=== PATIENT | female | born 1985 | race Caucasian/White ===

== ENCOUNTER 2017-06-26 21:14 | Inpatient (IN) | payer BC ==
[2017-06-26] MEDS ORDERED: Metoclopramide 10 MG/2 ML SDV IVPUSH ONE (22:06)
[2017-06-26] MEDS ORDERED: Sodium Chloride 0.9% 10 ML Syringe FLUSH PRN (22:06)
[2017-06-26] MEDS ORDERED: Citric Acid/Sodium Citrate Solution 30 ML Cup PO ONE (22:06)
[2017-06-26] MEDS ORDERED: Bupivacaine 0.5% 30 ML SDV ONE (22:10)
[2017-06-26] MEDS ORDERED: Metoclopramide 10 MG/2 ML SDV ONE (22:10)
[2017-06-26] MEDS ORDERED: Lactated Ringers 1,000 ML IV SCH (22:15)
[2017-06-26] MEDS ORDERED: Oxytocin/Lactated Ringers 10 UNIT/1,000 ML BAG IV SCH (22:15)
[2017-06-26] MEDS ORDERED: ceFAZolin 2 GM in Premix Bag 1 BAG IV ONE (22:26)
--- NOTE | 2017-06-26 22:29 | PCM.PREANE ---
Preanesthetic Assessment - Anesthesia/Transfusion/Family Hx Anesthesia History: Prior Anesthesia Without Reaction Family History of Anesthesia Reaction: No Transfusion History: No Prior Transfusion(s) Intubation History: Unknown - Review of Systems General: No Symptoms Pulmonary: No Symptoms Cardiovascular: No Symptoms Gastrointestinal: No Symptoms Neurological: No Symptoms Other: Reports: Easy Bleeding, Easy Bruising - Physical Assessment NPO Status Date: 06/26/17 NPO Status Time: 17:30 (orange) Pulse: 112 O2 Sat by Pulse Oximetry: 100 Respiratory Rate: 18 Blood Pressure: 117/79 Temperature: 36.8 C Vital Signs: Last Vital Signs Temp 36.9 C 06/26/17 22:20 Pulse 112 H 06/26/17 22:20 Resp 18 06/26/17 22:20 BP 117/79 06/26/17 22:20 Pulse Ox 100 06/26/17 22:20 Height: 1.63 m Weight: 79.379 kg ASA Class: 2E Mental Status: Alert & Oriented x3 Airway Class: Mallampati = 2 Dentition: Reports: Normal Dentition, Caries Thyro-Mental Finger Breadths: 3 Mouth Opening Finger Breadths: 3 ROM/Head Extension: Full Lungs: Clear to Auscultation, Normal Respiratory Effort Cardiovascular: Regular Rate, Regular Rhythm, No Murmurs - Lab Values: platelets = 216,000 All labs reviewed and noted and within acceptable ranges to proceed with c section. 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: - SUBSTANCE USE Smoking Status *Q: Never Smoker Second Hand Smoke Exposure: No Days Per Week of Alcohol Use: 0 Recreational Drug Use History: No - HOME MEDS Home Medications: Home Meds Azithromycin [Z-Chris] 250 mg PO ASDIRECTED #1 dosepk 11/11/15 [Rx] - CURRENT (IN HOUSE) MEDS Current Meds: Current Medications Lactated Ringer's (Ringers, Lactated) 1,000 mls @ 125 mls/hr IV ASDIRECTED [facility] Oxytocin/Lactated Ringer's (Pitocin In Lr 10 Units/1,000 Ml) 10 unit in 1,000 mls @ 500 mls/hr IV ASDIRECTED [facility] PRN Reason: Protocol Sodium Chloride (Saline Flush) 10 ml FLUSH ASDIRECTED PRN PRN Reason: Keep Vein Open Discontinued Medications Bupivacaine HCl (Marcaine 0.5%) Confirm Administered Dose 30 ml .ROUTE .STK-MED ONE Stop: 06/26/17 22:11 Citric Acid/Sodium Citrate (Bicitra Solution) 30 ml PO ONETIME ONE Stop: 06/26/17 22:07 Metoclopramide HCl (Reglan) Confirm Administered Dose 10 mg .ROUTE .STK-MED ONE Stop: 06/26/17 22:11 Metoclopramide HCl (Reglan) 10 mg IVPUSH ONETIME ONE Stop: 06/26/17 22:07
[2017-06-26] MEDS ORDERED: Oxytocin 10 Units/1 ML SDV ONE (22:58)
[2017-06-26] MEDS ORDERED: ceFAZolin 1 GM Vial ONE (22:58)
[2017-06-26] MEDS ORDERED: Lactated Ringers 2,000 ML ONE (22:58)
[2017-06-26] MEDS ORDERED: Ondansetron 4 MG/2 ML SDV ONE (22:58)
[2017-06-26] MEDS ORDERED: Phenylephrine 1% 10 MG/ML SDV ONE (22:58)
[2017-06-26] MEDS ORDERED: Ketorolac 30 MG/ML SDV ONE (22:58)
[2017-06-26] MEDS ORDERED: Morphine PF 10 MG/10 ML SDV ONE (22:59)
[2017-06-26] MEDS ORDERED: Meperidine PF 50 MG/ML Syringe IVPUSH PRN (23:02)
[2017-06-26] MEDS ORDERED: HYDROmorphone 0.5 MG/0.5 ML Syringe IVPUSH PRN (23:02)
[2017-06-26] MEDS ORDERED: Ondansetron 4 MG/2 ML SDV IVPUSH PRN (23:02)
[2017-06-26] MEDS ORDERED: fentaNYL 100 MCG/2 ML SDV IVPUSH PRN (23:02)
[2017-06-26] MEDS ORDERED: diphenhydrAMINE 50 MG/ML SDV IVPUSH PRN (23:02)
[2017-06-26] MEDS ORDERED: Phenylephrine 1 MG in Sodium Chloride 0.9% 10 ML IV SCH (23:15)
--- NOTE | 2017-06-27 00:02 | PCM.POSTAN ---
POST ANESTHESIA ASSESSMENT - MENTAL STATUS Mental Status: Alert - VITAL SIGNS Pulse Rate: 85 SaO2: 100 Resp Rate: 14 Blood Pressure: 117/75 Temperature: 37.1 C - RESPIRATORY Respiratory Status: Respiratory Rate WNL, Airway Patent, O2 Saturation Stable, Supplemental Oxygen - CARDIOVASCULAR CV Status: Pulse Rate WNL, Blood Pressure Stable - GASTROINTESTINAL GI Status: No Symptoms - POST OP HYDRATION Hydration Status: Adequate & Stable
--- NOTE | 2017-06-27 00:16 | PCM.OPNOTE ---
- General Post-Op/Procedure Note Date of Surgery/Procedure: 06/26/17 Operative Procedure(s): repeat - low transverse Findings: Normal pelvic anatomy, viable vertex female, 8/9 APGARS, 8#3oz at 2313 Pre Op Diagnosis: prior ,desires repeat Post-Op Diagnosis: Same Anesthesia Technique: Spinal Primary Surgeon: Franchesca De La Cruz Anesthesia Provider: Amanda Fox Flight/Transport Nurse: aRchel Garay Reason Flight/Transport Nurse Was Necessary: retraction, positioning, standard of care Pathology: none Fluid Replacement, Intraop: 1,000 Output, Urine Amount: 100 EBL in mLs: 500 Complications: None Condition: Good Free Text/Narrative:: Intake & Output 06/26/17 06/26/17 06/27/17 14:59 22:59 06:59 Output Total 100 Balance -100 The patient was taken to the operating room where epidural anesthesia was dosed to surgical levels without difficulty. The patient was prepped and draped in the usual sterile fashion in the dorsal supine position with a leftward tilt. A Pfannenstiel skin incision was made with the scalpel and carried through to the underlying layer of fascia. The fascia was incised in the midline and extended laterally using Joyner scissors. Hossein clamps were used to elevate the superior aspect of the fascial incision, which was elevated, and the underlying rectus muscles were dissected off bluntly and using Joyner scissors. Attention was then turned to the inferior aspect of the fascial incision, which in similar fashion was grasped with Hossein clamps, elevated, and the underlying rectus muscles were dissected off bluntly and using the joyner. The rectus muscles were dissected in the midline. The peritoneum was entered bluntly; this incision was extended superiorly and inferiorly with good visualization of the bladder. The bladder blade was inserted. The vesicouterine peritoneum was identified and entered sharply using Metzenbaum scissors. This incision was extended laterally and the bladder flap was created digitally. The bladder blade was reinserted. The lower uterine segment was incised in a transverse fashion using the scalpel and with digital traction. Clear fluid was noted. The was subsequently delivered by flexing the head to the incision. Body and shoulders followed without difficulty. The cord was clamped and cut. The was subsequently handed to the awaiting dining room host whose presence had been requested.. The placenta was delivered spontaneously intact with a three-vessel cord noted. The uterus was exteriorized and cleared of all clots and debris. The uterine incision was repaired in 2 layers using 0 monocryl. Hemostasis was visualized. Hemostasis was visualized bilaterally. The uterus was returned to the abdomen. The uterine incision was reexamined and it was noted to be hemostatic. The pelvis was copiously irrigated. The fascia was closed with 1 PDS suture, and the skin was closed with 3-0 monocryl. Sponge, lap, and instrument counts were correct x2. The patient was stable at the completion of the procedure and was subsequently transferred to the recovery room in stable condition.
[2017-06-27] MEDS ORDERED: Dextrose 5%-Lactated Ringers 1,000 ML IV SCH (00:54)
[2017-06-27] MEDS ORDERED: ePHEDrine 50 MG/ML SDV IVPUSH PRN (00:54)
[2017-06-27] MEDS ORDERED: Lanolin 100% Cream 7 GM Tube TOP PRN (00:54)
[2017-06-27] MEDS ORDERED: Docusate Sodium 100 MG Cap PO PRN (00:54)
[2017-06-27] MEDS ORDERED: diphenhydrAMINE 50 MG/ML SDV IVPUSH PRN (00:54)
[2017-06-27] MEDS ORDERED: Naloxone 0.4 MG/ML SDV IVPUSH PRN (00:54)
[2017-06-27] MEDS ORDERED: Ibuprofen 600 MG Tab PO PRN (06:00)
[2017-06-27] MEDS ORDERED: Ketorolac 30 MG/ML SDV IVPUSH SCH (06:15)
[2017-06-27] MEDS: Ketorolac 30 MG/ML SDV IVPUSH SCH ×3 (06:52→18:57)
--- NOTE | 2017-06-27 08:22 | PCM48HPAN ---
Post Anesthesia Note - EVALUATION WITHIN 48HRS OF ANESTHETIC Vital Signs in Normal Range: Yes Patient Participated in Evaluation: Yes Respiratory Function Stable: Yes Airway Patent: Yes Cardiovascular Function Stable: Yes Hydration Status Stable: Yes Pain Control Satisfactory: Yes Nausea and Vomiting Control Satisfactory: Yes Mental Status Recovered: Yes - COMMENTS/OBSERVATIONS Free Text/Narrative:: Patient doing well resting in bed. Denies any backpain, residual numbenss/ tingling to LE, or headaches.
--- NOTE | 2017-06-27 09:10 | PCM.PNPP ---
- General Info Date of Service: 06/27/17 Functional Status: Reports: Pain Controlled - Review of Systems General: Reports: No Symptoms HEENT: Reports: No Symptoms Pulmonary: Reports: No Symptoms Cardiovascular: Reports: No Symptoms Gastrointestinal: Reports: No Symptoms Genitourinary: Reports: No Symptoms Musculoskeletal: Reports: No Symptoms Skin: Reports: No Symptoms Neurological: Reports: No Symptoms Psychiatric: Reports: No Symptoms - General Info Date of Service: 06/27/17 - Patient Data Vital Signs - Most Recent: Last Vital Signs Temp 36.6 C 06/27/17 04:44 Pulse 90 06/27/17 04:44 Resp 16 06/27/17 06:00 BP 110/67 06/27/17 04:44 Pulse Ox 98 06/27/17 06:00 Weight - Most Recent: 79.379 kg I&O - Last 24 Hours: Intake & Output 06/26/17 06/27/17 06/27/17 22:59 06:59 14:59 Intake Total 1400 Output Total 1600 Balance -200 Lab Results - Last 24 Hours: Laboratory Results - last 24 hr 06/27/17 Range/Units 06:45 WBC 10.65 H (3.98-10.04) K/mm3 RBC 3.37 L (3.98-5.22) M/mm3 Hgb 10.1 L (11.2-15.7) gm/L Hct 30.6 L (34.1-44.9) % MCV 90.8 (79.4-94.8) fl MCH 30.0 (25.6-32.2) pg MCHC 33.0 (32.2-35.5) g/dl RDW Std Deviation 40.1 (36.4-46.3) fL Plt Count 179 L (182-369) K/mm3 MPV 9.4 (9.4-12.3) fl Neut % (Auto) 80.1 H (34.0-71.1) % Lymph % (Auto) 13.9 L (19.3-51.7) % Love % (Auto) 5.4 (4.7-12.5) % Eos % (Auto) 0.1 L (0.7-5.8) Baso % (Auto) 0.1 (0.1-1.2) % Neut # (Auto) 8.53 H (1.56-6.13) K/mm3 Lymph # (Auto) 1.48 (1.18-3.74) K/mm3 Love # (Auto) 0.58 H (0.24-0.36) K/mm3 Eos # (Auto) 0.01 L (0.04-0.36) K/mm3 Baso # (Auto) 0.01 (0.01-0.08) K/mm3 Med Orders - Current: Current Medications Diphenhydramine HCl (Benadryl) 25 mg IVPUSH Q6H PRN PRN Reason: Itching or Nausea Last Admin: 06/27/17 06:48 Dose: 25 mg Docusate Sodium (Colace) 100 mg PO Q12H PRN PRN Reason: Constipation Emollient Ointment (Lansinoh Hpa) 0 gm TOP ASDIRECTED PRN PRN Reason: Sore Nipples Ephedrine Sulfate (Ephedrine Sulfate) 5 mg IVPUSH SEECOMMENT PRN PRN Reason: Other Ibuprofen (Motrin) 600 mg PO Q6H PRN PRN Reason: mild pain or fever Ketorolac Tromethamine (Toradol) 30 mg IVPUSH Q6H [facility] Stop: 06/27/17 18:16 Last Admin: 06/27/17 06:52 Dose: 30 mg Naloxone HCl (Narcan) 0.1 mg IVPUSH SEECOMMENT PRN PRN Reason: Respiratory Depression Oxycodone/Acetaminophen (Percocet 325-5 Mg) 2 tab PO Q6H PRN PRN Reason: Pain (moderate 4-6) Discontinued Medications Bupivacaine HCl (Marcaine 0.5%) Confirm Administered Dose 30 ml .ROUTE .STK-MED ONE Stop: 06/26/17 22:11 Last Admin: 06/26/17 23:08 Dose: 19 ml Cefazolin Sodium (Ancef) Confirm Administered Dose 2 gm .ROUTE .STK-MED ONE Stop: 06/26/17 22:59 Citric Acid/Sodium Citrate (Bicitra Solution) 30 ml PO ONETIME ONE Stop: 06/26/17 22:07 Last Admin: 06/26/17 22:43 Dose: 30 ml Diphenhydramine HCl (Benadryl) 25 mg IVPUSH Q6H PRN PRN Reason: pruritis Fentanyl (Sublimaze) 50 mcg IVPUSH Q5M PRN PRN Reason: Pain Hydromorphone HCl (Dilaudid) 0.5 mg IVPUSH Q15M PRN PRN Reason: severe pain Lactated Ringer's (Ringers, Lactated) 1,000 mls @ 125 mls/hr IV ASDIRECTED [facility] Last Admin: 06/26/17 22:45 Dose: 125 mls/hr Oxytocin/Lactated Ringer's (Pitocin In Lr 10 Units/1,000 Ml) 10 unit in 1,000 mls @ 500 mls/hr IV ASDIRECTED [facility] PRN Reason: Protocol Cefazolin Sodium/Dextrose 2 gm (/ Premix) 50 mls @ 100 mls/hr IV ONETIME ONE Stop: 06/26/17 22:55 Lactated Ringer's (Ringers, Lactated) Confirm Administered Dose 2,000 mls @ as directed .ROUTE .STK-MED ONE Stop: 06/26/17 22:59 Phenylephrine HCl 1 mg/ Sodium (Chloride) 10.1 mls @ 1 mls/sec IV TITRATE [facility] PRN Reason: Protocol Dextrose/Lactated Ringer's (Dextrose 5%-Lactated Ringers) 1,000 mls @ 125 mls/ hr IV ASDIRECTED [facility] Stop: 06/27/17 08:53 Last Admin: 06/27/17 01:17 Dose: 125 mls/hr Ibuprofen (Motrin) 600 mg PO Q6H PRN PRN Reason: mild pain or fever Ketorolac Tromethamine (Toradol) Confirm Administered Dose 30 mg .ROUTE .STK- MED ONE Stop: 06/26/17 22:59 Ketorolac Tromethamine (Toradol) 30 mg IVPUSH Q6H [facility] Meperidine HCl (Demerol) 12.5 mg IVPUSH ONETIME PRN PRN Reason: shivering Metoclopramide HCl (Reglan) Confirm Administered Dose 10 mg .ROUTE .STK-MED ONE Stop: 06/26/17 22:11 Last Admin: 06/26/17 22:43 Dose: Not Given Metoclopramide HCl (Reglan) 10 mg IVPUSH ONETIME ONE Stop: 06/26/17 22:07 Last Admin: 06/26/17 22:43 Dose: 10 mg Morphine Sulfate (Duramorph Pf) Confirm Administered Dose 10 mg .ROUTE .STK-MED ONE Stop: 06/26/17 23:00 Ondansetron HCl (Zofran) Confirm Administered Dose 4 mg .ROUTE .STK-MED ONE Stop: 06/26/17 22:59 Ondansetron HCl (Zofran) 4 mg IVPUSH ONETIME PRN PRN Reason: Nausea/Vomiting Oxytocin (Pitocin) Confirm Administered Dose 10 unit .ROUTE .STK-MED ONE Stop: 06/26/17 22:59 Phenylephrine HCl (Santiago-Synephrine) Confirm Administered Dose 10 mg .ROUTE .STK- MED ONE Stop: 06/26/17 22:59 Sodium Chloride (Saline Flush) 10 ml FLUSH ASDIRECTED PRN PRN Reason: Keep Vein Open - Interaction Disposition, : at Bedside Support Person: - Recovery Exam Fundal Tone: Firm Fundal Level: At Umbilicus Fundal Placement: Midline Lochia Amount: Small Lochia Color: Rubra/Red Perineum Description: Edematous Bladder Status: Indwelling Catheter in Place Urinary Elimination: Indwelling Catheter - Exam General: Alert, Oriented HEENT: Pupils Equal Neck: Supple Lungs: Clear to Auscultation, Normal Respiratory Effort Cardiovascular: Regular Rate, Regular Rhythm GI/Abdominal Exam: Normal Bowel Sounds, Soft, Non-Tender, No Organomegaly, No Distention, No Abnormal Bruit, No Mass, Pelvis Stable Extremities: Normal Inspection, Normal Range of Motion, Non-Tender, No Pedal Edema, Normal Capillary Refill Skin: Warm, Dry, Intact Wound/Incisions: Healing Well Neurological: No New Focal Deficit Psy/Mental Status: Alert, Normal Affect, Normal Mood - Problem List Review Problem List Initiated/Reviewed/Updated: Yes - My Orders Last 24 Hours: My Active Orders 06/26/17 22:06 Resuscitation Status Routine 06/27/17 00:54 Communication Order [RC] PER UNIT ROUTINE Communication Order [RC] PER UNIT ROUTINE Communication Order [RC] PER UNIT ROUTINE Notify Provider Intake and Out [RC] ASDIRECTED Vital Signs [RC] Q4HR Acetaminophen/oxyCODONE [Percocet 325-5 MG] 2 tab PO Q6H PRN Docusate Sodium [Colace] 100 mg PO Q12H PRN Lanolin [Lansinoh HPA] See Dose Instructions TOP ASDIRECTED PRN Naloxone [Narcan] 0.1 mg IVPUSH SEECOMMENT PRN diphenhydrAMINE [Benadryl] 25 mg IVPUSH Q6H PRN ePHEDrine [ePHEDrine Sulfate] 5 mg IVPUSH SEECOMMENT PRN Assess Lochia [WOMSER] Per Unit Routine Assess Uterine Involution [WOMSER] Per Unit Routine Medication Administration Instruction [OM.PC] Routine 06/27/17 06:15 Ketorolac [Toradol] 30 mg IVPUSH Q6H 06/27/17 Breakfast Regular Diet [DIET] 06/28/17 00:09 Urinary Catheter Removal [RC] Per Unit Routine 06/28/17 00:30 Ibuprofen [Motrin] 600 mg PO Q6H PRN - Assessment Assessment:: Term . Doing well. - Plan Plan:: Doing well. No issues. May discontinue godfrey.
[2017-06-27] MEDS: Acetaminophen/oxyCODONE 325-5 MG Tab PO PRN (23:19)
[2017-06-28] MEDS: Acetaminophen/oxyCODONE 325-5 MG Tab PO PRN ×3 (03:26→21:12)
[2017-06-28] MEDS: Ibuprofen 600 MG Tab PO PRN (15:47)
[2017-06-28 20:32] VITALS: BP 133/76
[2017-06-29] MEDS: Ibuprofen 600 MG Tab PO PRN (01:23)
--- NOTE | 2017-06-29 07:57 | PCM.DCSUM1 ---
Discharge Summary - Discharge Data Discharge Date: 06/29/17 Discharge Disposition: Home, Self-Care 01 Condition: Good - Patient Summary/Data Operative Procedure(s) Performed: repeat - low transverse - Patient Instructions Diet: Usual Diet as Tolerated Activity: No Strenuous Activities Driving: Do Not Drive Showering/Bathing: May Shower Wound/Incision Care: Keep Operative Site/Wound Site Clean and Dry Notify Provider of: Fever, Increased Pain, Swelling and Redness - Discharge Plan - Discharge Summary/Plan Comment DC Time >30 min.: No - General Info Date of Service: 06/29/17 Functional Status: Reports: Pain Controlled - Review of Systems General: Reports: No Symptoms HEENT: Reports: No Symptoms Pulmonary: Reports: No Symptoms Cardiovascular: Reports: No Symptoms Gastrointestinal: Reports: No Symptoms Genitourinary: Reports: No Symptoms Musculoskeletal: Reports: No Symptoms Skin: Reports: No Symptoms Neurological: Reports: No Symptoms Psychiatric: Reports: No Symptoms - Patient Data Vitals - Most Recent: Last Vital Signs Temp 36.4 C 06/28/17 19:12 Pulse 99 06/28/17 19:12 Resp 14 06/28/17 19:12 BP 133/76 06/28/17 19:12 Pulse Ox 100 06/28/17 19:12 Weight - Most Recent: 79.379 kg I&O - Last 24 hours: Intake & Output 06/28/17 06/29/17 06/29/17 22:59 06:59 14:59 Intake Total 240 1000 Output Total 100 Balance 240 900 Med Orders - Current: Current Medications Diphenhydramine HCl (Benadryl) 25 mg IVPUSH Q6H PRN PRN Reason: Itching or Nausea Last Admin: 06/27/17 06:48 Dose: 25 mg Docusate Sodium (Colace) 100 mg PO Q12H PRN PRN Reason: Constipation Last Admin: 06/28/17 11:33 Dose: 100 mg Emollient Ointment (Lansinoh Hpa) 0 gm TOP ASDIRECTED PRN PRN Reason: Sore Nipples Ephedrine Sulfate (Ephedrine Sulfate) 5 mg IVPUSH SEECOMMENT PRN PRN Reason: Other Ibuprofen (Motrin) 600 mg PO Q6H PRN PRN Reason: mild pain or fever Last Admin: 06/29/17 01:23 Dose: 600 mg Naloxone HCl (Narcan) 0.1 mg IVPUSH SEECOMMENT PRN PRN Reason: Respiratory Depression Oxycodone/Acetaminophen (Percocet 325-5 Mg) 2 tab PO Q6H PRN PRN Reason: Pain (moderate 4-6) Last Admin: 06/28/17 21:12 Dose: 2 tab Discontinued Medications Bupivacaine HCl (Marcaine 0.5%) Confirm Administered Dose 30 ml .ROUTE .STK-MED ONE Stop: 06/26/17 22:11 Last Admin: 06/26/17 23:08 Dose: 19 ml Cefazolin Sodium (Ancef) Confirm Administered Dose 2 gm .ROUTE .STK-MED ONE Stop: 06/26/17 22:59 Citric Acid/Sodium Citrate (Bicitra Solution) 30 ml PO ONETIME ONE Stop: 06/26/17 22:07 Last Admin: 06/26/17 22:43 Dose: 30 ml Diphenhydramine HCl (Benadryl) 25 mg IVPUSH Q6H PRN PRN Reason: pruritis Fentanyl (Sublimaze) 50 mcg IVPUSH Q5M PRN PRN Reason: Pain Hydromorphone HCl (Dilaudid) 0.5 mg IVPUSH Q15M PRN PRN Reason: severe pain Lactated Ringer's (Ringers, Lactated) 1,000 mls @ 125 mls/hr IV ASDIRECTED [facility] Last Admin: 06/26/17 22:45 Dose: 125 mls/hr Oxytocin/Lactated Ringer's (Pitocin In Lr 10 Units/1,000 Ml) 10 unit in 1,000 mls @ 500 mls/hr IV ASDIRECTED [facility] PRN Reason: Protocol Cefazolin Sodium/Dextrose 2 gm (/ Premix) 50 mls @ 100 mls/hr IV ONETIME ONE Stop: 06/26/17 22:55 Last Admin: 06/27/17 19:01 Dose: Not Given Lactated Ringer's (Ringers, Lactated) Confirm Administered Dose 2,000 mls @ as directed .ROUTE .STK-MED ONE Stop: 06/26/17 22:59 Phenylephrine HCl 1 mg/ Sodium (Chloride) 10.1 mls @ 1 mls/sec IV TITRATE [facility] PRN Reason: Protocol Dextrose/Lactated Ringer's (Dextrose 5%-Lactated Ringers) 1,000 mls @ 125 mls/ hr IV ASDIRECTED [facility] Stop: 06/27/17 08:53 Last Admin: 06/27/17 01:17 Dose: 125 mls/hr Ibuprofen (Motrin) 600 mg PO Q6H PRN PRN Reason: mild pain or fever Ketorolac Tromethamine (Toradol) Confirm Administered Dose 30 mg .ROUTE .STK- MED ONE Stop: 06/26/17 22:59 Ketorolac Tromethamine (Toradol) 30 mg IVPUSH Q6H [facility] Ketorolac Tromethamine (Toradol) 30 mg IVPUSH Q6H [facility] Stop: 06/27/17 18:16 Last Admin: 06/27/17 18:57 Dose: 30 mg Meperidine HCl (Demerol) 12.5 mg IVPUSH ONETIME PRN PRN Reason: shivering Metoclopramide HCl (Reglan) Confirm Administered Dose 10 mg .ROUTE .STK-MED ONE Stop: 06/26/17 22:11 Last Admin: 06/26/17 22:43 Dose: Not Given Metoclopramide HCl (Reglan) 10 mg IVPUSH ONETIME ONE Stop: 06/26/17 22:07 Last Admin: 06/26/17 22:43 Dose: 10 mg Morphine Sulfate (Duramorph Pf) Confirm Administered Dose 10 mg .ROUTE .STK-MED ONE Stop: 06/26/17 23:00 Ondansetron HCl (Zofran) Confirm Administered Dose 4 mg .ROUTE .STK-MED ONE Stop: 06/26/17 22:59 Ondansetron HCl (Zofran) 4 mg IVPUSH ONETIME PRN PRN Reason: Nausea/Vomiting Oxytocin (Pitocin) Confirm Administered Dose 10 unit .ROUTE .STK-MED ONE Stop: 06/26/17 22:59 Phenylephrine HCl (Santiago-Synephrine) Confirm Administered Dose 10 mg .ROUTE .STK- MED ONE Stop: 06/26/17 22:59 Sodium Chloride (Saline Flush) 10 ml FLUSH ASDIRECTED PRN PRN Reason: Keep Vein Open - Exam General: Reports: Alert, Oriented HEENT: Reports: Pupils Equal, Pupils Reactive, EOMI, Mucous Membr. Moist/[place] Neck: Reports: Supple Lungs: Reports: Clear to Auscultation, Normal Respiratory Effort Cardiovascular: Reports: Regular Rate, Regular Rhythm GI/Abdominal Exam: Normal Bowel Sounds, Soft, Non-Tender, No Organomegaly, No Distention, No Abnormal Bruit, No Mass, Pelvis Stable Back Exam: Reports: Normal Inspection, Full Range of Motion Extremities: Normal Inspection, Normal Range of Motion, Non-Tender, No Pedal Edema, Normal Capillary Refill Skin: Reports: Warm, Dry, Intact Wound/Incisions: Reports: Healing Well Neurological: Reports: No New Focal Deficit Psy/Mental Status: Reports: Alert, Normal Affect, Normal Mood *Q Meaningful Use (DIS) - VTE *Q VTE Criteria *Q: - Stroke *Q Stroke Criteria *Q: - AMI *Q AMI Criteria *Q:
[2017-06-29] MEDS: Acetaminophen/oxyCODONE 325-5 MG Tab PO PRN (09:06)
== END 2017-06-29 11:30 | disposition home or self-care (01) | DRG 540 ==
LOC: JD.OB 21:14 → OBSVTOIN 23:13
PROVIDERS: ADMIT Obstetrics & Gynecology; ATTEND Obstetrics & Gynecology
PROC: 10D00Z1 Extraction of Products of Conception, Low, Open Approach (ICD-10-PCS; principal; 2017-06-26)
DX: O34.211 Maternal care for low transverse scar from previous cesarean delivery (principal); N85.8 Other specified noninflammatory disorders of uterus; Z3A.39 39 weeks gestation of pregnancy; Z37.0 Single live birth
CPT/HCPCS: 01961; 36415; 85025; 94762; A9270-GY; J0690; J1200; J1885; J2270; J2370; J2405; J2590; J2765; J7042; J7120

== ENCOUNTER 2020-09-17 15:21 | Emergency (ER) | payer BC ==
[2020-09-17] MEDS ORDERED: LORazepam 0.5 MG Tab PO ONE (15:37)
--- NOTE | 2020-09-17 15:40 | EDM.PDOC ---
ED HPI GENERAL MEDICAL PROBLEM - General Chief Complaint: General Stated Complaint: PANIC ATTACK Time Seen by Provider: 09/17/20 15:30 Source of Information: Reports: Patient, RN Notes Reviewed History Limitations: Reports: No Limitations - History of Present Illness INITIAL COMMENTS - FREE TEXT/NARRATIVE: Patient is a 35-year-old female who presents to the ED for evaluation of her possible panic attack. Patient notes she had a routine cleaning on Saturday at her dentist, and they found that she had some cavities and wanted to do some quick work so they gave her for lidocaine injections in her jaw. She states that the dentist warned her she might feel funny after this, she had not had anything much to eat prior to this, and they told her that she might feel like she is having a panic attack. Patient notes that since then, she has felt shortness of breath, anxious, had some muscle cramping/tightening. She feels like her chest is tight, and this can happens intermittently. She denies any past history of anxiety or issues with this prior to that. She takes no regular medications, she has no PCP. Patient denies any other sick-like symptoms, fever/chills, cough/shortness of breath, nausea/vomiting/diarrhea. She does however today state that she just feels "tired". 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 ED EXAM, GENERAL - Physical Exam Exam: See Below Exam Limited By: No Limitations General Appearance: Alert, WD/WN, No Apparent Distress Respiratory/Chest: No Respiratory Distress, Lungs Clear, Normal Breath Sounds, No Accessory Muscle Use, Chest Non-Tender Cardiovascular: Normal Peripheral Pulses, Regular Rate, Rhythm, No Edema Peripheral Pulses: 2+: Radial (L), Radial (R) Extremities: Normal Inspection, Normal Capillary Refill Neurological: Alert, Oriented, Normal Cognition, No Motor/Sensory Deficits Psychiatric: Normal Affect, Normal Mood, Anxious (generalized) Skin Exam: Warm, Dry, Intact, Normal Color, No Rash Course - Vital Signs Last Recorded V/S: Last Vital Signs Temp 98.7 F 09/17/20 15:27 Pulse 76 09/17/20 15:27 Resp 18 09/17/20 15:27 BP 148/101 H 09/17/20 15:27 Pulse Ox 99 09/17/20 15:27 - Orders/Labs/Meds Labs: Laboratory Tests 09/17/20 09/17/20 Range/Units 15:47 15:47 WBC 5.00 (3.98-10.04) K/mm3 RBC 4.65 (3.98-5.22) M/mm3 Hgb 14.4 D (11.2-15.7) gm/dl Hct 43.0 (34.1-44.9) % MCV 92.5 (79.4-94.8) fl MCH 31.0 (25.6-32.2) pg MCHC 33.5 (32.2-35.5) g/dl RDW Std Deviation 39.8 (36.4-46.3) fL Plt Count 206 (182-369) K/mm3 MPV 9.5 (9.4-12.3) fl Neut % (Auto) 68.8 (34.0-71.1) % Lymph % (Auto) 23.8 (19.3-51.7) % [place] % (Auto) 6.0 (4.7-12.5) % Eos % (Auto) 1.2 (0.7-5.8) Baso % (Auto) 0.2 (0.1-1.2) % Neut # (Auto) 3.44 (1.56-6.13) K/mm3 Lymph # (Auto) 1.19 (1.18-3.74) K/mm3 [place] # (Auto) 0.30 (0.24-0.36) K/mm3 Eos # (Auto) 0.06 (0.04-0.36) K/mm3 Baso # (Auto) 0.01 (0.01-0.08) K/mm3 Sodium 143 (136-145) mEq/L Potassium 3.8 (3.5-5.1) mEq/L Chloride 106 (98-107) mEq/L Carbon Dioxide 27 (21-32) mEq/L Anion Gap 13.8 (5-15) BUN 14 (7-18) mg/dL Creatinine 0.9 (0.55-1.02) mg/dL Est Cr Clr Drug Dosing 76.77 mL/min Estimated GFR (MDRD) > 60 (>60) mL/min BUN/Creatinine Ratio 15.6 (14-18) Glucose 95 (74-106) mg/dL Calcium 9.3 (8.5-10.1) mg/dL Magnesium 2.4 (1.8-2.4) mg/dl Total Bilirubin 0.4 (0.2-1.0) mg/dL AST 21 (15-37) U/L ALT 32 (14-59) U/L Alkaline Phosphatase 49 (46-116) U/L Total Protein 7.7 (6.4-8.2) g/dl Albumin 4.1 (3.4-5.0) g/dl Globulin 3.6 gm/dL Albumin/Globulin Ratio 1.1 (1-2) TSH 3rd Generation 1.403 (0.358-3.74) uIU/mL Meds: Medications Discontinued Medications Generic Name Dose Route Start Last Admin Trade Name Freq PRN Reason Stop Dose Admin Lorazepam 1 mg 09/17/20 15:37 09/17/20 15:46 Ativan PO 09/17/20 15:38 1 mg ONETIME ONE Administration - Re-Assessments/Exams Free Text/Narrative Re-Assessment/Exam: 09/17/20 15:40 Patient presents to the ED for her possible panic attack, due to this being somewhat of a new onset, will go ahead and check some labs including CBC, CMP, magnesium level and a TSH. She was given 1 mg p.o. Ativan for initial management. 09/17/20 16:32 Patient's labs are unremarkable, I will reassess the patient at bedside, and hopefully get her discharged with a few tablets of Ativan and direction to follow-up with a regular care provider for ongoing anxiety management. Departure - Departure Time of Disposition: 16:32 Disposition: Home, Self-Care 01 Condition: Good Clinical Impression: Anxiety - Discharge Information *PRESCRIPTION DRUG MONITORING PROGRAM REVIEWED*: No *COPY OF PRESCRIPTION DRUG MONITORING REPORT IN PATIENT LINDA: No Prescriptions: LORazepam [Ativan] 1 mg PO TID PRN #12 tab PRN Reason: Anxiety Instructions: Managing Anxiety, Adult Referrals: PCP,None [Primary Care Provider] - Forms: ED Department Discharge Additional Instructions: You were seen in the ER today for your anxiety. Laboratory evaluation demonstrates no focal abnormalities, your thyroid level is within normal limits. What you are experiencing is likely just anxiety in nature. You were given a 1 mg dose of Ativan in the ER, this seemed to help relieve most your symptoms. You have been given a prescription for this for continuation, you may take 1/2-1 full tablet up to 3 times a day as needed for further anxiety symptoms. If you do not have a primary care provider already, I recommend that you follow- up with a provider in our clinic, any family practice provider would be able to provide you with the services. Our clinic telephone number [phone], please call in the morning to obtain an appointment with the provider, for follow-up of your symptoms that prompted your ER visit today. Please return to the ER at any time if symptoms change or worsen. Sepsis Event Note (ED) - Evaluation Sepsis Screening Result: No Definite Risk - Focused Exam Vital Signs: Vital Signs Temp Pulse Resp BP Pulse Ox 09/17/20 15:27 98.7 F 76 18 148/101 H 99
[2020-09-17 16:38] VITALS: BP 118/83; PULSE 65
== END 2020-09-17 16:47 | disposition home or self-care (01) ==
LOC: JD.ED 15:21
DX: F41.9 Anxiety disorder, unspecified (principal)
CPT/HCPCS: 36415; 80053; 83735; 84443; 85025; 99283; A9270